=== PATIENT | male | born 1955 | race Caucasian/White ===

== ENCOUNTER 2016-12-09 05:28 | Inpatient (IN) | payer BC ==
[2016-12-03 11:05] LABS: URINE BILIRUBIN NEGATIVE (Negative); URINE BLOOD NEGATIVE (Negative); URINE COLOR YELLOW; URINE GLUCOSE-RANDOM* NEGATIVE (Negative); URINE KETONES NEGATIVE (Negative); URINE LEUKOCYTES-REFLEX NEGATIVE (Negative); URINE PROTEIN (DIPSTICK) NEGATIVE (Negative); URINE UROBILINOGEN 0.2 E.U./dl (0.2-1.0)
[2016-12-03 11:05] LABS: HEMATOCRIT 42.7 % (42.0-52.0); MCH 29.4 pg (26.0-34.0); RBC 5.09 mil/uL (4.50-6.00); RDW 15.6 % (10.5-14.5); WBC 7.9 thou/uL (4.0-11.0)
[2016-12-03 11:13] LABS: CALCIUM 9.2 mg/dL (8.5-10.1); CREATININE 1.3 mg/dL (0.6-1.3); POTASSIUM 3.5 mmol/L (3.5-5.1)
[~2016-12-09] VITALS: Ht 175.3 cm; Wt 99.3 kg
[2016-12-09] VITALS (7 sets, daily range): BP systolic 106–135; BP diastolic 65–87
--- NOTE | ~2016-12-09 | O ---
[address] [address] OPERATIVE REPORT Name: LAN JUAREZ Room #: 547-P ADM IN M.R.#: [id number] Admission: 12/09/16 Attend Phys: Shane Graf MD Discharge: Date of : 51 Report #: [id number] THIS REPORT FOR: //name// CC: EVELYN physician/PCP Shane Graf DATE OF SERVICE: 12/09/2016 PREOPERATIVE DIAGNOSES: 1. Lumbar spondylosis. 2. Lumbar stenosis. 3. L4-L5 spondylolisthesis. 4. Failed previous lumbar spinal fusion. POSTOPERATIVE DIAGNOSES: 1. Lumbar spondylosis. 2. Lumbar stenosis. 3. L4-L5 spondylolisthesis. 4. Failed previous lumbar spinal fusion. PROCEDURE PERFORMED: 1. L4-L5 minimally invasive transforaminal lumbar interbody fusion. 2. Placement of biomechanical intervertebral device at L4-L5. 3. Bilateral L4-L5 pedicle screw and luís fixation. 4. Intraoperative neurophysiologic monitoring. 5. Use of fluoroscopy for intraoperative localization. 6. Use of operating microscope to provide illumination and magnification for microdissection. SURGEON: Shane Graf MD. ASSOCIATE PUBLISHER: None. ANESTHESIA: General endotracheal. INTRAOPERATIVE FLUIDS: 1600 mL of crystalloid. URINE OUTPUT: 200 mL. ESTIMATED BLOOD LOSS: 50 mL. SPECIMEN: None. COMPLICATIONS: None apparent. FINDINGS: Mobile spondylolisthesis at L4-L5 with prior placement of L4-L5, [address] [address] OPERATIVE REPORT Name: LAN JUAREZ Room #: 547-P [facility] IN ..#: [id number] Admission: 12/09/16 Attend Phys: Shane Graf MD Discharge: Date of : 51 Report #: [id number] interspinous process fusion device with failure of fusion and fracture of the superior portion of the L4 spinous process. HISTORY: The patient is a pleasant 60-year-old gentleman, who previously underwent placement of interspinous process fusion device, performed by another surgeon, several years previously. The patient initially performed well; however, he had return of symptoms of stenosis with neurogenic claudication. Imaging studies demonstrated the presence of ongoing stenosis at L4-L5, secondary to facet arthropathy and ligamentous hypertrophy, associated with spondylolisthesis at L4-L5. The patient was counseled in the outpatient setting regarding further conservative therapy versus surgical intervention. At this point, given the nature and persistence of his complaints, negative impact of these complaints on his daily life, and in correlation with the available imaging studies, I have recommended the patient to pursue a surgical option. The goals of surgery, as well as risks and benefits were reviewed with the patient in outpatient clinical setting, and it is adequately documented on the outpatient chart. The patient and his family have acknowledged the understanding of this discussion, and they wished to proceed with surgery. Consent was signed and placed on the chart. DESCRIPTION OF PROCEDURE: The patient was taken to the operating room by Anesthesia, having IVs placed preoperatively. He underwent successful placement of an endotracheal tube for general endotracheal anesthesia. Antibiotics were given per protocol. Guerra catheter was placed. The patient was then positioned supine to prone position, on top of the radiolucent Jose table in standard spine configuration. His arms were gently rotated to be positioned above his head with care taken to maintain his elbows and shoulders at less than 90 degrees of flexion. All pressure points were checked and found to be adequately padded. The patient's back was then cleaned, prepped, and draped in the usual sterile fashion. C-arm fluoroscopic unit was draped in the field sterilely to assist with intraoperative localization. Neurophysiologic monitoring was initiated with somatosensory evoked potentials and free running EMGs. The patient's spinal midline was then identified with an external skin marker, and then 2 parallel incisions were drawn from the top of the L4 pedicle to the bottom of the L5 pedicle, 3.5 cm lateral to midline. These two incisions were then infiltrated with 10 mL of 1% lidocaine with epinephrine each. The skin was incised with #10 blade down to the thoracolumbar fascia. Thoracolumbar fascia was incised with the same blade. Next, safety wires were placed in the bilateral pedicles of L4 and L5 using Jamshidi needles under AP and lateral fluoroscopic guidance. Having secured the Jamshidi needles in place, the wires were bent out of the field. Additionally, a small dilator from Medtronic METRx retractor tray was passed through the wound and fascial opening on the left side and docked on the left lamina of L4. Over this, dilator was passed, serial dilators from the Medtronic METRx retractor tray. When the wound was successfully dilated to 26 mm, a 26 mm x 7 cm long METRx retractor was passed over the dilators and secured to the table with articulating arm. The dilators [facility] [address] [place] [address] OPERATIVE REPORT Name: LAN JUAREZ Room #: 547-P ADM IN M.R.#: [id number] Admission: 12/09/16 Attend Phys: Shane Graf MD Discharge: Date of : 51 Report #: [id number] were removed. The position and adequacy of the retractor was verified with lateral C-arm fluoroscopy. Next, the muscles overlying the left L4 lamina were reduced with Bovie electrocautery. High speed pneumatic drill with gigi matchstick tip bur was then used to initiate laminotomy at L4-L5 on the left side. Once the ligamentum flavum was identified, the laminotomy was expanded with various sized Kerrison punches. An osteotome mallet was then used to disarticulate the inferior articular facet of L4. High speed pneumatic drill with gigi matchstick tip bur and a small Kerrison punch was then used to disarticulate the superior articular facet of L5. Next, the ligamentum flavum was perforated with blunt nerve hook exposing the underlying dura. With the dura in plain view, ligamentum flavum was resected with various sized Kerrison punches. Dissection was then proceeded inferiorly to attempt to ensure that there was no further compression of the thecal sac from hypertrophic facet join or thickened ligamentum flavum. Next, the epidural venous complex was bipolar electrocauterized and sectioned with microscissors, protecting the lateral edge of the thecal sac, and the L5 nerve root with a suction retractor. A #11 blade was used to perform an annulotomy at L4-L5. Disk material was then recovered from the L4-L5 disk space, using various sized curettes and Manjula rongeurs. Disk space distractors from Medtronic Capstone instrument tray were tamped in to the disk space, disk space was distracted to 11 mm. Next, trials from Medtronic Capstone instrument tray were tamped in to disk space and a 10 x 26 mm appeared to fit reasonably well. The trial was removed. Next, attention returned to the right side over the previously placed safety wires, 6.5 x 15 mm polyaxial Medtronic Sextant Solera pedicle screws were placed, then using the Sextant apparatus, a 35 mm prebent cobalt chrome luís was passed between the screw heads using the Sextant apparatus. Using the reduction facet screws, the patient's spondylolisthesis was neutralized. Set screws were temporarily tightened in position. Attention returned back to the left side, with a 10 mm trial was removed. Disk space was rasped and cleared of residual disk material. Then the patient's own local autograft bone, which was harvested during the decompression was morcellized and placed within the L4-L5 disk space, as well as a half of a sponge from [employer] Extra Small Infuse kit. The second half of the Infuse sponge was placed within the center of a [employer] Elevate 9 mm high x 28 mm long expandable biomechanical intervertebral device, which was then also passed in the L4-L5 disk space. Having secured osseous fusion material, as well as interbody biomechanical device at L4-L5, attention returned back to the right side, where the set screws were tightened in to their torque-limited breakoff point and removed the Sextant apparatus, and screw assemblies were removed. On the left side, the wound was copiously irrigated with bacitracin containing irrigation. Meticulous hemostasis obtained with bipolar electrocautery and FloSeal. Retractor tube was withdrawn to the skin surface. In the similar fashion, on the left side 6.5 x 50 mm polyaxial Medtronic Sextant Solera pedicle screw was placed at both L4 and L5. A 40 mm prebent cobalt chrome luís was passed between the screw heads using the Sextant apparatus through a separate stab incision. Set screws were tightened into position and then tightened to their torque limited breakoff point. The Sextant apparatus and screw assembly [facility] [address] [place] [address] OPERATIVE REPORT Name: LAN JUAREZ Room #: 547-P [facility] IN M.R.#: [id number] Admission: 12/09/16 Attend Phys: Shane Graf MD Discharge: Date of : 51 Report #: [id number] was removed. The wounds were again irrigated with bacitracin irrigation. Meticulous hemostasis obtained with bipolar electrocautery and FloSeal. The muscle and fascia was closed with interrupted 2-0 Vicryl stitches. A 20 mL of 0.75% Marcaine with epinephrine was injected to the paraspinous muscle to act as local anesthesia. Skin itself was then closed with inverted interrupted 2-0 Vicryl stitches and running 4-0 subcuticular Vicryl stitch. Dressings of Mastisol, Steri-Strips, Telfa and Tegaderm were applied. The patient was then awoken from anesthesia and taken to PACU in hemodynamically stable and satisfactory condition. All needle, sponge, and instrument counts were correct times 2 per nursing at the end of the case. By: [id number] Shane Graf MD /nt
--- NOTE | ~2016-12-09 | H ---
[facility] [place] [address] [place] [address] HISTORY AND PHYSICAL Name: LAN JUAREZ Room #: 150-2 ADM IN M.R.#: [id number] Admission: 12/09/16 Attend Phys: Shane Graf MD Discharge: Date of : 51 Report #: [id number] THIS REPORT FOR: //name// CC: EVELYN physician/PCP Shane Graf ANTICIPATED DATE OF SERVICE: 12/09/2016 CHIEF COMPLAINT: Back pain, lower extremity numbness and weakness. HISTORY OF PRESENT ILLNESS: The patient is a pleasant 60-year-old right hand male. He recently submitted the anterior cervical diskectomy instrumented fusion for cervical spondylosis/stenosis with myelopathy. The patient originally presented to the outpatient neurosurgery clinic in referral from Dr. Trever Brewer for assessment, recommendation and management of back and lower extremity symptoms. The patient's primary care doctor is Dr. Juanito Pryor. The patient is a former surgical patient of Dr. Brewer. He previously was admitted to a placement of L4-L5 posterior interspinous process spacer device for management of symptomatic lumbar stenosis. He states he initially did well following the surgery. The patient had been ambulating somewhat mild everyday with good pain relief improvement and numbness and weakness, which he had prior to surgical intervention by Dr. Brewer. The patient reports that he started again having problems in May of 2016. He stated that he fell getting out of a car, but does not remember that specific event leading to increase in his symptoms; however, the patient's symptoms then became progressive since that time. He reports that he walks fairly slowly. He can only walk 5 or 10 minutes prior to significant pain from his waist radiating to his feet. He complains of burning sensation in the legs, left greater than right. These complaints improve with sitting down and he has had complaints of pain in the left hip moreso on the right if he sits for prolonged period of time. He states that he is feeling weak in his legs. He also states there is subjective feel in his leg with walking and strenuous physical activity. The patient continues to have difficulty ascending stairs. He notes pain in his hips and proximal lower extremities going downstairs. He denies any changes in bowel or bladder habits. The patient also initially described complaints of numbness in his fingers and decreased dexterity for which he was identified that he had likely cervical spondylosis, myelopathy and he submitted to surgical intervention to correct this particular problem. The patient has done well after his anterior cervical surgery and presents today for definitive surgical management of recurrent lumbar stenosis. No additional complaints at this time. PAST MEDICAL HISTORY: Includes rheumatoid arthritis, osteoarthritis, diabetes, obstructive sleep apnea, however the patient does not use a CPAP machine, he has a remote history of deep venous thrombosis, cold sores, headaches, hypertension, history of scarlet fever as well as shingles. PAST SURGICAL HISTORY: Includes cholecystectomy, nonsegmental instrumented [facility] [address] [place] [address] HISTORY AND PHYSICAL Name: LAN JUAREZ Room #: 150-2 ADM IN M.R.#: [id number] Admission: 12/09/16 Attend Phys: Shane Graf MD Discharge: Date of : 51 Report #: [id number] fusion at L4-L5 and more recently the C5-C6 anterior cervical diskectomy with instrumented fusion. FAMILY HISTORY: Includes diabetes and hypertension. SOCIAL HISTORY: The patient is . He lives with his spouse. He is retired. He has a remote history of tobacco consumption, which he quit greater than 10 years ago. He notes infrequent alcohol consumption. He denies the use of prescription medication or illicit substances. ALLERGIES: BETA MELLISSA AND CONTRAST DYE for which he is managed with free treatments with steroids. CURRENT MEDICATIONS: Include metformin, triamterene, Losartan, hydroxychloroquine, pyridostigmine, leflunomide, verapamil and gabapentin. REVIEW OF SYSTEMS: A 13-point review of systems was performed, which is unchanged from his previous condition. He reports use of corrective lenses, tinnitus, nasal congestion, chronic diarrhea, increased frequency of urination, easy bruising, seasonal allergies, difficulty sleeping with poor sleep hygiene, shortness of breath with exertion and excessive daytime sleepiness. PHYSICAL EXAMINATION: GENERAL: The patient is a well-developed, well-nourished male in no acute distress. He has normal to large body habitus. No dysmorphic features appreciated to eyes, ears or face. HEAD: Normocephalic and atraumatic. EYES: Pupils appeared to be equal and reactive. His extraocular muscles appeared to be full. His sclerae are nonicteric. ORAL CAVITY: Tongue protrudes in midline. Uvula and palate elevate symmetrically. His mucosa is moist and he has good dentition. NECK: Soft and supple. Trachea is midline. Cervical range of motion appears to be reasonable. Left anterior cervical insertion appears to be healing well. SKIN: Warm and dry with good turgor. BACK: The patient has no obvious scoliosis, kyphosis or deformity. He has a midline back incision, which is well healed. MUSCULOSKELETAL: No swelling or deformity. EXTREMITIES: No cyanosis, clubbing or edema. Capillary refill is normal. Peripheral pulses are 2+ bilaterally at the radial artery at the wrists. NEUROLOGIC: The patient is alert and oriented to person, place and time. His cognitive exam is grossly normal. He has no abnormal cerebellar findings appreciated. The patient's muscle tone and bulk appeared normal. Cranial nerves 2-12 appeared grossly intact. Motor strength is 5/5 with some limitations secondary to arthritis. Full and symmetric in the bilateral upper as well as lower extremities. The patient does have some residual loss of fine [facility] [address] [place] [address] HISTORY AND PHYSICAL Name: LAN JUAREZ Room #: 150-2 ADM IN .R.#: [id number] Admission: 12/09/16 Attend Phys: Shane Graf MD Discharge: Date of : 51 Report #: [id number] motor control and dexterity in his hands, which is improved from his previous surgical condition. Deep tendon reflexes are 1/4 and symmetric in the bilateral biceps, brachioradialis, triceps, patella and Achilles tendons. No abnormal pectoral, Tsai's, or crossed adductor reflexes were elicited. No clonus was elicited at the ankles. The patient arose from a seated position with no difficulty. He ambulates with a fairly normal gait. Sensation is grossly intact to light touch, pinprick and proprioception of bilateral upper as well as lower extremities. PSYCHOLOGIC: The patient is cooperative with the examination. He demonstrates good eye contact. His speech is clear. Judgment and insight appear good. Thought processes are logical and goal directed. Mood and affect appear full range. IMAGING: MRI of the lumbar spine with and without contrast at [facility] on 07/29/2016 demonstrates mild normal lumbar lordosis. There is mild anterior wedging of T11-T12 vertebral bodies. There is apparent prior surgical intervention with L4-L5 interspinous process spacer at L4-L5. Mild grade 1 spondylolisthesis at L4-L5, severe central stenosis at L4-L5 secondary to facet arthropathy, ligamentous hypertrophy with L4-L5 disk protrusion. Also, presence of moderate L4-L5 neural foraminal stenosis, left greater than right. CT myelogram [facility] 08/24/2016 demonstrates findings from previous MRI, postsurgical change with placement of L4-L5 interspinous process spacing device. There was suggestion of fracture of superior aspect of the L4 spinous process. There is mild L4-L5 spondylolisthesis. There is significant residual stenosis at L4-L5. There is multilevel degenerative disk disease and spondylotic changes throughout the visualized thoracolumbar spine with degenerative changes, greatest at L4-L5. Lumbar flexion and extension x-rays were performed at the initial myelogram, which demonstrated mild anterolisthesis at L4-L5, which increase slightly with flexion, but reduces with extension. DIAGNOSES: Lumbar spondylosis/stenosis and L4-L5 spondylolisthesis. PLAN: 1. The patient presents today for definitive intervention of L4-L5 spondylosis, stenosis and spondylolisthesis. 2. The patient does appear to be symptomatic with failure of prior surgical intervention and possible fracture of the L4 spinous process. 3. We reviewed options to improve the patient's presenting complaints including surgical management as well as surgical intervention. At this point in time, the nature and persistence of his complaints, negative impact of these complaints on his daily life, and in correlation with the available imaging studies, I have advised the patient to pursue a surgical option. Surgically, I advised the patient to submit to a left-sided L4-L5 transforaminal lumbar interbody fusion with bilateral L4-L5 pedicle screw and luís fixation. 4. The goals of surgery, as well as risks and benefits were reviewed with the [facility] [address] [place] [address] HISTORY AND PHYSICAL Name: LAN JUAREZ Room #: 150-2 ADM IN M.R.#: [id number] Admission: 12/09/16 Attend Phys: Shane Graf MD Discharge: Date of : 51 Report #: [id number] patient in outpatient clinical setting and is adequately documented on the outpatient clinic chart. The risk of surgery include, but were not exclusively limited to bleeding, infection, risk, history of spinal fluid leak and its consequences, potential for injury to local structures including nerve roots, which could result in permanent pain or disability, potential for hardware failure/malfunction and its consequences, potential for development of additional areas of structural instability, which could result in need for additional surgical intervention, failure of surgical intervention with residual recurrent symptoms as well as risks of undergoing anesthesia and hospitalization. 5. The patient had the opportunity to have his questions answered to his satisfaction. He has acknowledged discussion as well as proposed plan of care. 6. After careful consideration of the discussion, the patient has expressed his desire to continue with surgical management as previously discussed. 7. The patient will be taken to the operating room to undergo a left-sided L4-L5 transforaminal lumbar interbody fusion with bilateral L4-L5 pedicle screw and luís fixation. 8. It is anticipated the patient will transfer to the standard medical surgical floor after recovery from anesthesia in the post-anesthesia care unit. 9. It is further anticipated the patient will follow up in the outpatient neurosurgery clinic per routine. By: 49 Shane Graf MD /nt
[~2016-12-09 05:28] MED LIST: ARAVA20 MG PO; CENTRUM SILVER1 EAC2 PO; CHOLESTYRAMINE378 GM PO; CINNAMON500 MG PO; COZAAR 25 MG TA25 M1 PO; FLEXERIL PO; HYDROCODON-ACE1 EAC7 PO; HYDROXYCHLOROQ200 M1 PO; LEFLUNOMIDE20 MG PO; METFORMIN HCL500 MG PO; NABUMETONE 500500 M1 PO; NABUMETONE 750750 M1 PO; NEURONTIN 300300 M1 PO; PLAVIX 75 MG TA75 M1 PO; PLAVIX 75 MG TA75 MG PO; PYRIDOSTIGMINE60 MG PO; TRIAMTERENE/HCT1 CA1 PO; VERAPAMIL ER120 MG PO; ZANTAC 150MG T150 MG PO
[2016-12-10 04:25] VITALS: BP 120/85
[2016-12-10 07:50] VITALS: BP 115/71
[2016-12-10 19:00] VITALS: BP 107/70
[2016-12-10 20:30] VITALS: BP 107/70
[2016-12-11 04:44] VITALS: BP 125/80
[2016-12-11] MEDS ORDERED: NORCO 10-325 T1 EACH PO (09:19)
[2016-12-11] MEDS ORDERED: CYCLOBENZAPRINE10 MG PO (09:21)
[2016-12-11 09:38] VITALS: BP 113/67
[2016-12-11 12:42] VITALS: BP 113/67
== END 2016-12-11 10:00 | disposition home or self-care (01) | DRG 460 ==
LOC: TBA 05:28 → 5S 05:28 → PRE 08:21 → 5S 14:23 → PRE 15:06 → 5S 12-11 10:00
PROVIDERS: Neurological Surgery
PROC: 0SG00AJ Fusion of Lumbar Vertebral Joint with Interbody Fusion Device, Posterior Approach, Anterior Column, Open Approach (ICD-10-PCS; principal; 2016-12-09)
PROC: 01NB0ZZ Release Lumbar Nerve, Open Approach (ICD-10-PCS; 2016-12-09)
PROC: 4A11X4G Monitoring of Peripheral Nervous Electrical Activity, Intraoperative, External Approach (ICD-10-PCS; 2016-12-09)
DX: M47.896 Other spondylosis, lumbar region (principal); M48.02 Spinal stenosis, cervical region; M06.9 Rheumatoid arthritis, unspecified; M48.06 Spinal stenosis, lumbar region; E11.9 Type 2 diabetes mellitus without complications; G47.33 Obstructive sleep apnea (adult) (pediatric); Z90.49 Acquired absence of other specified parts of digestive tract; Z82.49 Family history of ischemic heart disease and other diseases of the circulatory system; Z83.3 Family history of diabetes mellitus; Z87.891 Personal history of nicotine dependence; Z91.041 Radiographic dye allergy status; Z79.899 Other long term (current) drug therapy; I10 Essential (primary) hypertension
CPT/HCPCS: 10785; 50010; 50101; 50402; 50455; 50515; 50522; 50743; 50744; 50745; 50746; 50747; 50771; 50782; 50850; 50860; 50923; 51751; 51779; 51878; 53210; 56526; 56532; 56651; 62110; 62900; 70005